=== PATIENT | male | born 1960 | race Caucasian/White ===

== ENCOUNTER 2023-04-30 06:54 | Day surgery (SDC) | payer OTHER ==
[~2023-04-30] VITALS: Ht 185.4 cm; Wt 108.9 kg
[2023-04-30] MEDS ORDERED: fentaNYL citrate 0.05 MG/ML VIAL ONE (08:29)
[2023-04-30] MEDS ORDERED: LIDOCAINE 2% 100 MG/5 ML UJET TP ONE (08:29)
[2023-04-30] MEDS ORDERED: fentaNYL citrate 0.05 MG/ML VIAL IVP ONE (09:35)
== END 2023-04-30 10:10 | disposition home or self-care (01) ==
LOC: MDS 06:54 → MMU 06:58 → MDS 10:10
PROVIDERS: ATTEND Internal Medicine Gastroenterology
DX: R19.7 Diarrhea, unspecified (principal); F17.210 Nicotine dependence, cigarettes, uncomplicated; Z79.899 Other long term (current) drug therapy
CPT/HCPCS: 45380; J3010; 88305